=== PATIENT | female | born 2000 | race Caucasian/White ===

== ENCOUNTER 2025-08-02 18:51 | Emergency (ER) | payer OTHER ==
[~2025-08-02] VITALS: Ht 157.5 cm; Wt 86.8 kg
[2025-08-02] MEDS ORDERED: BACITRACIN 0.9 GM PACKET OINTMENT TP ONE (19:00)
[2025-08-02 19:33] VITALS: TEMP 97.9
[2025-08-02] MEDS: FAMOTIDINE 20 MG/2 ML VIAL IVP ONE (22:05)
[2025-08-02] MEDS: SODIUM CHLORIDE 0.9% 1,000 ML IV ONE (22:05)
[2025-08-02] MEDS: METOCLOPRAMIDE HCL 5 MG/ML 2 ML VIAL IVP ONE (22:05)
[2025-08-02 22:11] LABS: PLATELET COUNT (AUTO) 234 K/uL (150-450); RED BLOOD CELL COUNT(AUTO) 3.99 MIL/uL (4.00-5.20); RED CELL DISTRIBUTION WIDTH 13.3 % (11.5-14.5); WHITE BLOOD COUNT (AUTO) 11.0 K/uL (4.5-11.0)
[2025-08-02 22:16] LABS: CALCIUM, TOTAL 8.3 mg/dL (8.8-10.5); CREATININE 0.40 mg/dL (0.60-1.30); GLOMERULAR FILTR. RATE CALC > 60 mL/min (>60); GLUCOSE,RANDOM 89 mg/dL (70-110); SODIUM SERUM 141 mmol/L (136-145); UREA NITROGEN, BLOOD 12 mg/dL (7-18)
[2025-08-02] MEDS ORDERED: FAMO20 PO (22:16)
[2025-08-02 22:43] LABS: HCG,QUANTITATIVE 19835 mIU/mL (0-6)
[2025-08-02 22:58] LABS: ASPARTATE AMINOTRANSFERASE 17.0 U/L (15-37); TOTAL PROTEIN, SERUM 6.2 g/dL (6.4-8.2)
[2025-08-03 00:57] VITALS: BP 121/62; PULSE 68; RESP 16; O2SAT 99
[2025-08-03 01:45] LABS: APPEARANCE,URINE CLEAR (CLEAR); GLUCOSE, URINE (UA) NEGATIVE (NEGATIVE); LEUKOCYTE ESTERASE ,URINE NEGATIVE (NEGATIVE); NITRATE,URINE NEGATIVE (NEGATIVE); OCCULT BLOOD,URINE NEGATIVE (NEGATIVE); SPECIFIC GRAVITIY, URINE 1.024 (1.003-1.030)
== END 2025-08-03 01:45 | disposition home or self-care (01) ==
LOC: EMS 18:54
DX: K52.9 Noninfective gastroenteritis and colitis, unspecified (principal); K29.70 Gastritis, unspecified, without bleeding; R11.2 Nausea with vomiting, unspecified; F17.210 Nicotine dependence, cigarettes, uncomplicated; R10.20 Pelvic and perineal pain unspecified side
CPT/HCPCS: 99285; 96374; 76705; 96361; 96375; 80048; 80076; 81003; 83690; 84702; 85025; 36415; J3490; J2765; J7030